=== PATIENT | female | born 1955 | race Caucasian/White ===

== ENCOUNTER → 2017-03-04 08:20 | Emergency (ER) | payer OTHER ==
[2017-03-04 08:32] VITALS: BP 117/86
[2017-03-04 11:01] LABS: Urine Appearance Clear; Urine Blood 1+ (Negative); Urine Color Yellow; Urine Ketones Negative (Negative); Urine Protein Negative (Negative); Urine Specific Gravity 1.012 (1.010-1.030); Urine Urobilinogen Negative (Negative)
[2017-03-04 11:17] LABS: ABS Basophils 0.1 10^3/ul (0-0.2); ABS Eosinophils 0.4 10^3/ul (0-0.6); ABS Lymphocytes 3.8 10^3/ul (1.0-4.8); ABS Monocytes 0.8 10^3/ul (0-0.8); ABS Neutrophils 4.1 10^3/ul (1.5-7.7); ABS Nucleated RBC 0 10^3/ul; Eosinophil % 4.3 % (0-6); Hematocrit 38 % (35-47); Lymphocyte % 41.9 % (25-47); Mean Corpuscular HGB Conc 34 g/dl (31-36); Mean Corpuscular Hemoglobin 33 pg (27-31); Mean Corpuscular Volume 95 fL (80-97); Mean Platelet Volume 8 um3 (7.4-10.4); Nucleated Red Blood Cells % 0; Platelet Count 264 10^3/ul (150-450); Red Blood Count 4.01 10^6/ul (4.0-5.4); Red Cell Distribution Width 12 % (10.5-15); White Blood Count 9.1 10^3/ul (3.5-10.8)
[2017-03-04 12:11] LABS: EGFR Non-African American 82.9 (>60)
--- NOTE | 2017-03-04 12:37 | ED ---
Avni Harvey Tecjoon, scribed for Prudencio Soni MD on 03/04/17 at 1045 . Complex/Multi-Sys Presentation - HPI Summary HPI Summary: This patient is a 61 year old female presenting to [facility] with a chief complaint of back spasms and lack of medication since months ago. Patient states that she has Parkinsons and has run out of Carbidopa and Mirapex a few months ago and has come to the ED for a medication refill Patient, at time of exam is restless and twitching. The pain is rated 8/10 in severity. Symptoms aggravated by nothing. Symptoms alleviated by nothing. The patient additionally repots thirstiness and general myalgia. The patient denies SOB, chest pain. - History Of Current Complaint Chief Complaint: EDBackInjuryPain Time Seen by Provider: 03/04/17 10:28 Hx Obtained From: Patient Onset/Duration: Gradual Onset, Lasting Weeks - 4+, Still Present Timing: Constant Severity Initially: Moderate - 8/10 Location: Pain At: - back Aggravating Factor(s): nothing Alleviating Factor(s): nothing Associated Signs And Symptoms: Positive: Other - back pain/spasms, thirstiness. Negative: SOB, Chest Pain - Allergies/Home Medications Allergies/Adverse Reactions: Allergies Allergy/AdvReac Type Severity Reaction Status Date / Time Ciprofloxacin [From Cipro] Allergy Severe Difficulty Verified 08/10/14 08:06 Breathing Sulfa Drugs AdvReac Mild See Comment Verified 08/10/14 08:06 PMH/Surg Hx/FS Hx/Imm Hx Previously Healthy: No Endocrine/Hematology History: Denies: Hx Diabetes, Hx Systemic Lupus Erythematosus, Hx Thyroid Disease Cardiovascular History: Reports: Other Cardiovascular Problems/Disorders - SVTS , BORN W BYPASS VALVE Denies: Hx Congestive Heart Failure, Hx Hypertension Respiratory History: Denies: Hx Asthma, Hx Chronic Obstructive Pulmonary Disease (COPD) GI History: Reports: Hx Diverticulosis, Hx Gastroesophageal Reflux Disease, Hx Ulcer - bleeding stomach ulcer, Other GI Disorders - GERD, DIVERTICULITIS History: Reports: Other Problems/Disorders - FREQ UTIS Denies: Hx Renal Disease Musculoskeletal History: Reports: Hx Arthritis, Other Musculoskeletal History - FX OF LT ANKLE, RT GREAT TOE, LT 3RD DIGIT Denies: Hx Rheumatoid Arthritis - Cancer History Cancer Type, 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 - Surgical History Surgery Procedure, Year, and Place: RT THUMB SX Hx Anesthesia Reactions: No Infectious Disease History: No Infectious Disease History: Reports: Hx Shingles - 2004 Denies: Hx Clostridium Difficile, Hx Hepatitis, Hx Human Immunodeficiency Virus (HIV), Hx of Known/Suspected MRSA, Hx Tuberculosis, Hx Known/Suspected VRE , Hx Known/Suspected VRSA, History Other Infectious Disease, Traveled Outside the [place] in Last 30 Days - Family History Known Family History: Positive: Hypertension - Social History Alcohol Use: Daily Alcohol Amount: Pt "clean for 39 days" 04/21/13 Hx Substance Use: Yes Substance Use Type: Reports: Cocaine, Marijuana. Denies: Heroin Substance Use Comment - Amount & Last Used: USED YESTERDAY, 03/03/17 Hx Tobacco Use: Yes Smoking Status (MU): Current Every Day Smoker Type: Cigarettes Amount Used/How Often: 1/2 PPD Length of Time of Smoking/Using Tobacco: 45+ YEARS Review of Systems Negative: Fever Negative: Chest Pain Negative: Shortness Of Breath Positive: Myalgia, Other - back pain/spasms All Other Systems Reviewed And Are Negative: Yes Physical Exam Triage Information Reviewed: Yes Vital Signs On Initial Exam: Initial Vitals Temp Pulse Resp BP Pulse Ox 97.9 F 94 20 117/86 96 03/04/17 08:27 03/04/17 08:27 03/04/17 08:27 03/04/17 08:27 03/04/17 08:27 Vital Signs Reviewed: Yes Appearance: Positive: Well-Appearing - but appears under the influence of drugs such as narcotics., No Pain Distress, Well-Nourished Skin: Positive: Warm, Skin Color Reflects Adequate Perfusion Head/Face: Positive: Normal Head/Face Inspection Eyes: Positive: EOMI ENT: Positive: Normal ENT inspection Neck: Positive: Nontender Respiratory/Lung Sounds: Positive: Clear to Auscultation, Breath Sounds Present Cardiovascular: Positive: RRR. Negative: Murmur Abdomen Description: Positive: Nontender Neurological: Positive: Sensory/Motor Intact, Alert, Oriented to Person Place, Time, CN Intact II-III Psychiatric: Positive: Normal, Other - the patient seems under the influence. She is not having parkinsonian movements and she is not having spasms. - Sebastián Coma Scale Best Eye Response: 4 - Spontaneous Best Motor Response: 6 - Obeys Commands Best Verbal Response: 5 - Oriented Coma Scale Total: 15 Diagnostics - Vital Signs Vital Signs Temp Pulse Resp BP Pulse Ox 03/04/17 10:00 30 03/04/17 09:00 82 14 96 03/04/17 08:43 87 18 95 03/04/17 08:27 97.9 F 94 20 117/86 96 - Laboratory Lab Results: Lab Results 03/04/17 Range/Units 10:40 Urine Color Yellow Urine Appearance Clear Urine pH 7.0 (5-9) Ur Specific [place] 1.012 (1.010-1.030) Urine Protein Negative (Negative) Urine Ketones Negative (Negative) Urine Blood 1+ H (Negative) Urine Nitrate Negative (Negative) Urine Bilirubin Negative (Negative) Urine Urobilinogen Negative (Negative) Ur Leukocyte Esterase Trace H (Negative) Urine WBC (Auto) Trace(0-5/hpf) (Absent) Urine RBC (Auto) Trace(0-2/hpf) (Absent) Urine Bacteria Absent (Absent) Urine Glucose Negative (Negative) Result Diagrams: 03/04/17 10:55 03/04/17 10:55 Lab Statement: Any lab studies that have been ordered have been reviewed, and results considered in the medical decision making process. - EKG 1117 Cardiac Rate: NL EKG Rhythm: Sinus Rhythm - 86 BPM EKG Interpretation: NSR (86 BPM), Normal VT, QRS, QT, no STEMI. Complex Multi-Symp Course/Dx Course Of Treatment: 61 yr old with substance abuse and non compliant with taking her meds, follow up appointment etc. She is in no distress. Will not write scripts. She will establish new PMD and follow up with them. The patient actually absconded prior to being discharged and left without any notice from the ER. AMA. - Diagnoses Provider Diagnoses: Substance abuse Discharge - Discharge Plan Condition: Good Disposition: AGAINST MEDICAL ADVICE Patient Education Materials: Polysubstance Abuse (ED) Referrals: [facility] [place] [facility] [Outside] Madison Guillen MD [Primary Care Provider] - 2 Days The documentation as recorded by the Avni villatoro Tecjoon accurately reflects the service I personally performed and the decisions made by , Prudencio Soni MD.
== END ==
LOC: ED 08:20
DX: F19.10 Other psychoactive substance abuse, uncomplicated (principal); M54.9 Dorsalgia, unspecified; F17.210 Nicotine dependence, cigarettes, uncomplicated; Z87.19 Personal history of other diseases of the digestive system; Z86.79 Personal history of other diseases of the circulatory system
CPT/HCPCS: 36415; 80053; 80307; 80320; 80329; 81003; 81015; 84443; 85025; 87086; 93005; 99283; G0480

== ENCOUNTER 2017-03-14 17:35 | Emergency (ER) | payer OTHER ==
--- NOTE | 2017-03-14 18:55 | RAD ---
Indication: Supraventricular tachycardia. Single frontal view of the chest performed at 1828 hours was reviewed. Comparison is made with previous exam dated March 17, 2013. No mediastinal shift is noted. Heart is of normal size and configuration. Lung hernandez appear clear. IMPRESSION: NO ACTIVE CARDIOPULMONARY DISEASE IS NOTED.
[2017-03-14 19:20] LABS: ABS Basophils 0 10^3/ul (0-0.2); ABS Eosinophils 0.3 10^3/ul (0-0.6); ABS Monocytes 0.8 10^3/ul (0-0.8); ABS Neutrophils 3.6 10^3/ul (1.5-7.7); ABS Nucleated RBC 0 10^3/ul; Eosinophil % 4.5 % (0-6); Hematocrit 41 % (35-47); Hemoglobin 14.1 g/dl (12.0-16.0); Mean Corpuscular HGB Conc 34 g/dl (31-36); Mean Corpuscular Hemoglobin 32 pg (27-31); Mean Corpuscular Volume 95 fL (80-97); Mean Platelet Volume 8 um3 (7.4-10.4); Nucleated Red Blood Cells % 0.1; Platelet Count 260 10^3/ul (150-450); Red Blood Count 4.36 10^6/ul (4.0-5.4); Red Cell Distribution Width 12 % (10.5-15); White Blood Count 7.8 10^3/ul (3.5-10.8)
[2017-03-14 19:28] LABS: EGFR Non-African American 62.5 (>60)
[2017-03-14 19:37] LABS: INR 0.85 (0.77-1.02)
[2017-03-14] MEDS ORDERED: Pramipexole TAB* 0.5 MG PO ONE ×2 (19:37→19:42)
[2017-03-14 19:40] LABS: Urine Appearance Cloudy; Urine Blood 2+ (Negative); Urine Color Straw; Urine Ketones Negative (Negative); Urine Protein Negative (Negative); Urine Specific Gravity 1.006 (1.010-1.030); Urine Urobilinogen Negative (Negative)
[2017-03-14 19:58] VITALS: BP 104/56
[2017-03-14] MEDS ORDERED: Carbidopa/Levodop 25/100 MG TAB(*) PO SCH (21:00)
--- NOTE | 2017-03-15 00:24 | ED ---
Cynthia Harvey Abhishek, scribed for Nesha oLtt MD on 03/14/17 at 1859 . Palpitations / Dysrhythmia - HPI Summary HPI Summary: Pt is a 61 yo F with hx paroxysmal SVT who called for the ambulance after approximately 30 minutes of rapid HR at home that did not respond to vagal maneuvers as usual. In the ambulance pt was given 500 cc IV fluids and continued vagal maneuvers and she converted to sinus rhythm. Pt denies any chest pain with the rapid HR. Pt states she has a bicuspid aortic valve. Pt also admits that she has a long hx of crack cocaine abuse and states that she has not used crack cocaine for 2 days because she is trying to self-detox. Pt states she is planning to go to [facility] on 03/16/17. Pt states that often her potassium is low when she has bouts of SVT. She states she has not needed to go to the hospital for SVT since 2007. Pt denies suicidal or homicidal ideation and states she does not want to seek rehab tonight and will go to [facility] in 2 days. Pt states she has run out of her mirapex and sinemet that she takes for restless legs and possible Parkinson's. States she has been without these medications for about 2 weeks, but has not had a PCP for approximately 2 months because she was "fired" for missing appointments. Pt also used to see Dr. Sandhu. Pt is a cigarette smoker. States she has not had an VA and has never had CHF. EKG done by EMS not available for me to review at the time of this encounter, however pt's care was discussed in person with female medic who was confident that rhythm was SVT and converted to SR. Pt is SR in the ED upon presentation. - History of Current Complaint Time Seen by Provider: 03/14/17 17:51 Hx Obtained From: Patient, EMS Onset/Duration: Sudden Onset - at 1740 on 03/14/17, Lasting Minutes, Resolved Timing: Constant Severity Initially: Severe Severity Currently: Mild Character: Fast Aggravating: Nothing Alleviating: Other - valsalva bearing down maneuvers with EMS Associated Signs & Symptoms: Negative Related History: Similar Episode/Dx as - SVT - Risk Factors Cardiac: Smoking - Allergy/Home Medications Allergies/Adverse Reactions: Allergies Allergy/AdvReac Type Severity Reaction Status Date / Time Ciprofloxacin [From Cipro] Allergy Severe Difficulty Verified 08/10/14 08:06 Breathing Sulfa Drugs AdvReac Mild See Comment Verified 08/10/14 08:06 PMH/Surg Hx/FS Hx/Imm Hx Endocrine/Hematology History: Denies: Hx Diabetes, Hx Systemic Lupus Erythematosus, Hx Thyroid Disease Cardiovascular History: Reports: Other Cardiovascular Problems/Disorders - SVT, born with bicuspid aortic valve Denies: Hx Congestive Heart Failure, Hx Hypertension Respiratory History: Denies: Hx Asthma, Hx Chronic Obstructive Pulmonary Disease (COPD) GI History: Reports: Hx Diverticulosis, Hx Gastroesophageal Reflux Disease, Hx Ulcer - bleeding stomach ulcer, Other GI Disorders History: Reports: Other Problems/Disorders - FREQ UTIS Denies: Hx Renal Disease Musculoskeletal History: Reports: Hx Arthritis, Other Musculoskeletal History - FX OF LT ANKLE, RT GREAT TOE, LT 3RD DIGIT Denies: Hx Rheumatoid Arthritis Neurological History: Reports: Other Neuro Impairments/Disorders - Parkinson's, restless legs Psychiatric History: Reports: Hx Substance Abuse - "Crack" - Cancer History Cancer Type, 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 - Surgical History Surgery Procedure, Year, and Place: RT THUMB SX Hx Anesthesia Reactions: No Infectious Disease History: No Infectious Disease History: Reports: Hx Shingles - 2004 Denies: Hx Clostridium Difficile, Hx Hepatitis, Hx Human Immunodeficiency Virus (HIV), Hx of Known/Suspected MRSA, Hx Tuberculosis, Hx Known/Suspected VRE , Hx Known/Suspected VRSA, History Other Infectious Disease, Traveled Outside the [place] in Last 30 Days - Family History Known Family History: Positive: Cardiac Disease - bicupsid aortic valve, mother , Hypertension - Social History Lives: Alone Alcohol Use: Daily Hx Substance Use: Yes Substance Use Type: Reports: Cocaine - "crack", Marijuana. Denies: Heroin Substance Use Comment - Amount & Last Used: 03/12/17, Two days ago Hx Tobacco Use: Yes Smoking Status (MU): Current Every Day Smoker Type: Cigarettes Amount Used/How Often: 1/2 PPD Length of Time of Smoking/Using Tobacco: 45+ YEARS Review of Systems Negative: Skin Diaphoresis Eyes: Negative ENT: Negative Positive: Palpitations Respiratory: Negative Gastrointestinal: Negative Genitourinary: Negative Musculoskeletal: Negative Skin: Negative Neurological: Negative Psychological: Normal All Other Systems Reviewed And Are Negative: Yes Physical Exam - Summary Physical Exam Summary: Appearance: chronically Ill-appearing, no pain distress, Well-nourished, sober Skin: Warm, color reflects adequate perfusion Head: Normal Head/Face inspection Eyes: Conjunctiva clear ENT: Normal inspection Neck: Supple, no nodes, no JVD. Respiratory: Expiratory wheezes bilaterally and a harsh cough Cardio: RRR, No murmur, pulses normal, brisk capillary refill Abdomen: soft, nontender Bowel sounds: present Musculoskeletal: Strength Intact/ ROM intact. No calf tenderness. No edema. Neuro: Alert, muscle tone normal, facial symmetry, speech normal, sensory/motor intact Psychological: Normal Triage Information Reviewed: Yes Vital Signs On Initial Exam: Initial Vitals Temp Pulse Resp BP Pulse Ox 98.2 F 94 18 108/91 94 03/14/17 17:40 03/14/17 17:40 03/14/17 17:40 03/14/17 17:40 03/14/17 17:40 Vital Signs Reviewed: Yes Diagnostics - Vital Signs Vital Signs Temp Pulse Resp BP Pulse Ox 03/14/17 17:40 98.2 F 94 18 108/91 94 - Laboratory Lab Results: Lab Results 03/14/17 03/14/17 03/14/17 Range/Units 19:01 19:01 19:01 WBC (3.5-10.8) 10^3/ul RBC (4.0-5.4) 10^6/ul Hgb (12.0-16.0) g/dl Hct (35-47) % MCV (80-97) fL MCH (27-31) pg MCHC (31-36) g/dl RDW (10.5-15) % Plt Count (150-450) 10^3/ul MPV (7.4-10.4) um3 Neut % (Auto) (38-83) % Lymph % (Auto) (25-47) % [place] % (Auto) (1-9) % Eos % (Auto) (0-6) % Baso % (Auto) (0-2) % Absolute Neuts (auto) (1.5-7.7) 10^3/ul Absolute Lymphs (auto) (1.0-4.8) 10^3/ul Absolute Monos (auto) (0-0.8) 10^3/ul Absolute Eos (auto) (0-0.6) 10^3/ul Absolute Basos (auto) (0-0.2) 10^3/ul Absolute Nucleated RBC 10^3/ul Nucleated RBC % INR (Anticoag Therapy) (0.77-1.02) APTT (26.0-36.3) seconds Sodium 139 (133-145) mmol/L Potassium 4.0 (3.5-5.0) mmol/L Chloride 107 (101-111) mmol/L Carbon Dioxide 28 (22-32) mmol/L Anion Gap 4 (2-11) mmol/L BUN 17 (6-24) mg/dL Creatinine 0.92 (0.51-0.95) mg/dL Est GFR ( Amer) 80.4 (>60) Est GFR (Non-Af Amer) 62.5 (>60) BUN/Creatinine Ratio 18.5 (8-20) Glucose 88 (70-100) mg/dL Lactic Acid (0.5-2.0) mmol/L Calcium 9.2 (8.6-10.3) mg/dL Magnesium 2.1 (1.9-2.7) mg/dL Total Bilirubin 0.30 (0.2-1.0) mg/dL AST 20 (13-39) U/L ALT 20 (7-52) U/L Alkaline Phosphatase 70 (34-104) U/L Troponin I 0.01 (<0.04) ng/mL B-Natriuretic Peptide 28 ( - 100) pg/mL Total Protein 6.2 L (6.4-8.9) g/dL Albumin 3.7 (3.2-5.2) g/dL Globulin 2.5 (2-4) g/dL Albumin/Globulin Ratio 1.5 (1-3) TSH 1.06 (0.34-5.60) mcIU/mL Thyroxine (T4) 5.81 L (6.09-12.23) mcg/mL Urine Color Straw Urine Appearance Cloudy Urine pH 6.0 (5-9) Ur Specific [place] 1.006 L (1.010-1.030) Urine Protein Negative (Negative) Urine Ketones Negative (Negative) Urine Blood 2+ H (Negative) Urine Nitrate Negative (Negative) Urine Bilirubin Negative (Negative) Urine Urobilinogen Negative (Negative) Ur Leukocyte Esterase Negative (Negative) Urine WBC (Auto) Trace(0-5/hpf) (Absent) Urine RBC (Auto) Trace(0-2/hpf) (Absent) Ur Squamous Epith Cells Present H (Absent) Urine Bacteria Absent (Absent) Urine Glucose Negative (Negative) 03/14/17 03/14/17 03/14/17 Range/Units 19:01 19:01 19:01 WBC 7.8 (3.5-10.8) 10^3/ul RBC 4.36 (4.0-5.4) 10^6/ul Hgb 14.1 (12.0-16.0) g/dl Hct 41 (35-47) % MCV 95 (80-97) fL MCH 32 H (27-31) pg MCHC 34 (31-36) g/dl RDW 12 (10.5-15) % Plt Count 260 (150-450) 10^3/ul MPV 8 (7.4-10.4) um3 Neut % (Auto) 46.2 (38-83) % Lymph % (Auto) 39.0 (25-47) % [place] % (Auto) 9.9 H (1-9) % Eos % (Auto) 4.5 (0-6) % Baso % (Auto) 0.4 (0-2) % Absolute Neuts (auto) 3.6 (1.5-7.7) 10^3/ul Absolute Lymphs (auto) 3.0 (1.0-4.8) 10^3/ul Absolute Monos (auto) 0.8 (0-0.8) 10^3/ul Absolute Eos (auto) 0.3 (0-0.6) 10^3/ul Absolute Basos (auto) 0 (0-0.2) 10^3/ul Absolute Nucleated RBC 0 10^3/ul Nucleated RBC % 0.1 INR (Anticoag Therapy) 0.85 (0.77-1.02) APTT 42.0 H (26.0-36.3) seconds Sodium (133-145) mmol/L Potassium (3.5-5.0) mmol/L Chloride (101-111) mmol/L Carbon Dioxide (22-32) mmol/L Anion Gap (2-11) mmol/L BUN (6-24) mg/dL Creatinine (0.51-0.95) mg/dL Est GFR ( Amer) (>60) Est GFR (Non-Af Amer) (>60) BUN/Creatinine Ratio (8-20) Glucose (70-100) mg/dL Lactic Acid 1.1 (0.5-2.0) mmol/L Calcium (8.6-10.3) mg/dL Magnesium (1.9-2.7) mg/dL Total Bilirubin (0.2-1.0) mg/dL AST (13-39) U/L ALT (7-52) U/L Alkaline Phosphatase (34-104) U/L Troponin I (<0.04) ng/mL B-Natriuretic Peptide ( - 100) pg/mL Total Protein (6.4-8.9) g/dL Albumin (3.2-5.2) g/dL Globulin (2-4) g/dL Albumin/Globulin Ratio (1-3) TSH (0.34-5.60) mcIU/mL Thyroxine (T4) (6.09-12.23) mcg/mL Urine Color Urine Appearance Urine pH (5-9) Ur Specific [place] (1.010-1.030) Urine Protein (Negative) Urine Ketones (Negative) Urine Blood (Negative) Urine Nitrate (Negative) Urine Bilirubin (Negative) Urine Urobilinogen (Negative) Ur Leukocyte Esterase (Negative) Urine WBC (Auto) (Absent) Urine RBC (Auto) (Absent) Ur Squamous Epith Cells (Absent) Urine Bacteria (Absent) Urine Glucose (Negative) Result Diagrams: 03/14/17 19:01 03/14/17 19:01 Lab Statement: Any lab studies that have been ordered have been reviewed, and results considered in the medical decision making process. - Radiology Chest X-ray Radiology Interpretation Completed By: Radiologist - CXR reveals, per radiologist, NO ACTIVE CARDIOPULMONARY DISEASE IS NOTED. ED physician has reviewed this radiology report and agrees. - EKG 1746 Cardiac Rate: NL EKG Rhythm: Sinus Rhythm - [address] Segment: Non-Specific Ectopy: None EKG Interpretation: EKG at 1746 reveals nml AVIVCT, nml QTc, normal axis EKG Comparison: No Significant Change - Prior EKG taken at 03/04/17 Re-Evaluation - Re-Evaluation First Eval Re-Evaluation Time: 19:30 - Denies chest pain. Labs reviewed. Agrees to discharge Change: Unchanged Course/Dx - Course Course Of Treatment: The pt presented [facility] with a chief complaint of palpitations. Pt stated her "heart was racing fast" and also stated she has a pertinent PMHx of SVT. Pt converted to sinus rhythm with stable blood pressure without medications, only IV fluids and valsalva. Pt also has a hx of substance abuse ("crack") which she last used 2 days ago, as well as tobacco use. Potassium is normal as are other labs. Pt will be given 10 day prescriptions for mirapex and sinemet and dispensed doses for home use tonight. She is agreeable to discharge, and remains in sinus rhythm and without chest pain at the time of discharge. - Diagnoses Provider Diagnoses: SVT (supraventricular tachycardia) Discharge - Discharge Plan Condition: Stable Disposition: HOME Prescriptions: Carbidopa/Levodop 25/100 MG(*) [Sinemet 25/100 TAB(*)] 1 tab PO TID #30 tab Pramipexole TAB* [Mirapex TAB*] 1.5 mg PO BEDTIME #10 tab Patient Education Materials: Supraventricular Tachycardia (ED) Referrals: [facility] [facility] [Outside] Madison Guillen MD [Medical Doctor] - Additional Instructions: Follow up with [facility] as you are planning. Return to the ER if you have new or worsening symptoms. The documentation as recorded by the Cynthia villatoro Abhishek accurately reflects the service I personally performed and the decisions made by , Nesha Lott MD.
== END 2017-03-14 19:57 | disposition home or self-care (01) ==
LOC: ED 17:35
DX: I47.1 Supraventricular tachycardia (principal); F17.210 Nicotine dependence, cigarettes, uncomplicated; Z87.19 Personal history of other diseases of the digestive system; Z86.79 Personal history of other diseases of the circulatory system
CPT/HCPCS: 36415; 71045; 80053; 81003; 81015; 83605; 83735; 83880; 84436; 84443; 84484; 85025; 85610; 85730; 93005; 99283; A9270-GY

== ENCOUNTER 2017-05-14 04:33 | Observation (INO) | payer OTHER ==
[2017-05-14] MEDS ORDERED: NS 0.9% 1000 ML* 1,000 ML IV ONE (04:34)
[2017-05-14] MEDS ORDERED: Diazepam SYRINGE* 5 MG/ML 2 ML SYRINGE (10 MG total) IV ONE (04:35)
[2017-05-14] MEDS ORDERED: LORazepam INJ* 2 MG/ML 1 ML VIAL ONE (04:41)
[2017-05-14] MEDS ORDERED: LORazepam INJ* 2 MG/ML 1 ML VIAL IM ONE ×2 (04:42)
[2017-05-14 05:50] LABS: Urine Appearance Clear; Urine Blood 1+ (Negative); Urine Color Straw; Urine Ketones Negative (Negative); Urine Protein Negative (Negative); Urine Specific Gravity 1.006 (1.010-1.030); Urine Urobilinogen Negative (Negative)
[2017-05-14] MEDS ORDERED: Diazepam INJ (NF) 5 MG/ML 10 ML VIAL (50 MG TOTAL) IV ONE ×2 (06:00)
[2017-05-14 06:02] LABS: ABS Basophils 0.1 10^3/ul (0-0.2); ABS Eosinophils 0.3 10^3/ul (0-0.6); ABS Monocytes 0.9 10^3/ul (0-0.8); ABS Neutrophils 5.5 10^3/ul (1.5-7.7); ABS Nucleated RBC 0 10^3/ul; Eosinophil % 2.8 % (0-6); Hematocrit 36 % (35-47); Hemoglobin 12.2 g/dl (12.0-16.0); Lymphocyte % 42.9 % (25-47); Mean Corpuscular HGB Conc 34 g/dl (31-36); Mean Corpuscular Hemoglobin 32 pg (27-31); Mean Corpuscular Volume 95 fL (80-97); Mean Platelet Volume 8 um3 (7.4-10.4); Nucleated Red Blood Cells % 0.1; Platelet Count 272 10^3/ul (150-450); Red Blood Count 3.77 10^6/ul (4.0-5.4); Red Cell Distribution Width 13 % (10.5-15); White Blood Count 11.7 10^3/ul (3.5-10.8)
[2017-05-14] MEDS ORDERED: Morphine INJ* 4 MG/ML 1 ML SYRINGE (NEW SYRINGE VERSION) IV ONE (06:07)
[2017-05-14] MEDS ORDERED: Morphine INJ* 4 MG/ML 1 ML SYRINGE (NEW SYRINGE VERSION) ONE (06:08)
[2017-05-14 06:19] LABS: EGFR Non-African American 62.3 (>60)
--- NOTE | 2017-05-14 07:03 | ED ---
Cynthia Harvey Abhishek, scribed for Ceci Elam MD on 05/14/17 at 0615 . Lower Extremity - HPI Summary HPI Summary: The pt is a 62 y/o female presenting to the [facility] via ambulance with a chief complaint of back spasms. The pt states she has a PMHx of restless leg syndrome and has not been taking medication for the syndrome. Pt brought by EMS due to pain and involuntary movement of the left leg. The pain, according to the pt, radiates into the left leg described as an itching." The patient rates the pain 10/10 in severity. Symptoms aggravated by nothing. Symptoms alleviated by nothing. - History of Current Complaint Chief Complaint: EDGeneral Stated Complaint: MUSCLE SPASMS Time Seen by Provider: 05/14/17 04:34 Pain Intensity: 10 - Allergies/Home Medications Allergies/Adverse Reactions: Allergies Allergy/AdvReac Type Severity Reaction Status Date / Time MS Ciprofloxacin [From Cipro] Allergy Severe Difficulty Verified 08/10/14 08:06 Breathing MS Sulfa Drugs [Sulfa Drugs] AdvReac Mild See Comment Verified 08/10/14 08:06 PMH/Surg Hx/FS Hx/Imm Hx Endocrine/Hematology History: Denies: Hx Diabetes, Hx Systemic Lupus Erythematosus, Hx Thyroid Disease Cardiovascular History: Reports: Other Cardiovascular Problems/Disorders - SVT, born with bicuspid aortic valve Denies: Hx Congestive Heart Failure, Hx Hypertension Respiratory History: Denies: Hx Asthma, Hx Chronic Obstructive Pulmonary Disease (COPD) GI History: Reports: Hx Diverticulosis, Hx Gastroesophageal Reflux Disease, Hx Ulcer - bleeding stomach ulcer, Other GI Disorders History: Reports: Other Problems/Disorders - FREQ UTIS Denies: Hx Renal Disease Musculoskeletal History: Reports: Hx Arthritis, Other Musculoskeletal History - FX OF LT ANKLE, RT GREAT TOE, LT 3RD DIGIT Denies: Hx Rheumatoid Arthritis Neurological History: Reports: Other Neuro Impairments/Disorders - Parkinson's, restless legs Psychiatric History: Reports: Hx Substance Abuse - "Crack" - Cancer History Cancer Type, 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 - Surgical History Surgery Procedure, Year, and Place: RT THUMB SX Hx Anesthesia Reactions: No Infectious Disease History: No Infectious Disease History: Reports: Hx Shingles - 2004 Denies: Hx Clostridium Difficile, Hx Hepatitis, Hx Human Immunodeficiency Virus (HIV), Hx of Known/Suspected MRSA, Hx Tuberculosis, Hx Known/Suspected VRE , Hx Known/Suspected VRSA, History Other Infectious Disease, Traveled Outside the [place] in Last 30 Days - Family History Known Family History: Positive: Cardiac Disease - bicupsid aortic valve, mother , Hypertension - Social History Alcohol Use: Daily Alcohol Amount: Pt "clean for 39 days" 04/21/13 Hx Substance Use: Yes Substance Use Type: Reports: Cocaine, Marijuana Substance Use Comment - Amount & Last Used: Marijuana Hx Tobacco Use: Yes Smoking Status (MU): Current Every Day Smoker Type: Cigarettes Amount Used/How Often: 1/2 PPD Length of Time of Smoking/Using Tobacco: 45+ YEARS Review of Systems Constitutional: Negative Eyes: Negative ENT: Negative Cardiovascular: Negative Respiratory: Negative Gastrointestinal: Negative Genitourinary: Negative Musculoskeletal: Other - Lower back spasms Positive: Other - Left leg pain ("itching" feeling) Skin: Negative Neurological: Other - Involuntary movement of the left leg Psychological: Normal All Other Systems Reviewed And Are Negative: Yes Physical Exam - Summary Physical Exam Summary: VITAL SIGNS: Reviewed. GENERAL: ~Patient is a well-developed and nourished (FEMALE) who is lying comfortable in the stretcher. Patient is not in any acute respiratory distress. HEAD AND FACE: No signs of trauma. No ecchymosis, hematomas or skull depressions. No sinus tenderness. EYES: PERRLA, EOMI x 2, No injected conjunctiva, no nystagmus. EARS: Hearing grossly intact. Ear canals and tympanic membranes are within normal limits. MOUTH: Oropharynx within normal limits. NECK: Supple, trachea is midline, no adenopathy, no JVD, no carotid bruit, no c- spine tenderness, neck with full ROM. CHEST: Symmetric, n SKIN: Dry and warm o tenderness at palpation LUNGS: Clear to auscultation bilaterally. No wheezing or crackles. CVS: Regular rate and rhythm, S1 and S2 present, no murmurs or gallops appreciated. ABDOMEN: Soft, non-tender. No signs of distention. No rebound no guarding, and no masses palpated. Bowel sounds are normal. EXTREMITIES: FROM in all major joints, no edema, no cyanosis or clubbing. NEURO: Involuntary movement over the bed Triage Information Reviewed: Yes Vital Signs On Initial Exam: Initial Vitals Temp Pulse Resp BP Pulse Ox 98.3 F 107 24 121/74 94 03/15/18 04:37 05/14/17 04:37 05/14/17 04:37 05/14/17 04:37 05/14/17 04:37 Vital Signs Reviewed: Yes Diagnostics - Vital Signs Vital Signs Temp Pulse Resp BP Pulse Ox 05/14/17 05:45 25 05/14/17 05:00 115 93 05/14/17 04:47 120/83 05/14/17 04:44 101 95 05/14/17 04:43 20 05/14/17 04:41 105 94 05/14/17 04:40 122/70 05/14/17 04:37 98.3 F 107 24 121/74 94 - Laboratory Lab Results: Lab Results 05/14/17 05/14/17 05/14/17 Range/Units 05:29 05:29 05:45 WBC 11.7 H (3.5-10.8) 10^3/ul RBC 3.77 L (4.0-5.4) 10^6/ul Hgb 12.2 (12.0-16.0) g/dl Hct 36 (35-47) % MCV 95 (80-97) fL MCH 32 H (27-31) pg MCHC 34 (31-36) g/dl RDW 13 (10.5-15) % Plt Count 272 (150-450) 10^3/ul MPV 8 (7.4-10.4) um3 Neut % (Auto) 46.5 (38-83) % Lymph % (Auto) 42.9 (25-47) % [place] % (Auto) 7.4 H (0-7) % Eos % (Auto) 2.8 (0-6) % Baso % (Auto) 0.4 (0-2) % Absolute Neuts (auto) 5.5 (1.5-7.7) 10^3/ul Absolute Lymphs (auto) 5.0 H (1.0-4.8) 10^3/ul Absolute Monos (auto) 0.9 H (0-0.8) 10^3/ul Absolute Eos (auto) 0.3 (0-0.6) 10^3/ul Absolute Basos (auto) 0.1 (0-0.2) 10^3/ul Absolute Nucleated RBC 0 10^3/ul Nucleated RBC % 0.1 Urine Color Straw Urine Appearance Clear Urine pH 5.0 (5-9) Ur Specific [place] 1.006 L (1.010-1.030) Urine Protein Negative (Negative) Urine Ketones Negative (Negative) Urine Blood 1+ A (Negative) Urine Nitrate Negative (Negative) Urine Bilirubin Negative (Negative) Urine Urobilinogen Negative (Negative) Ur Leukocyte Esterase Negative (Negative) Urine WBC (Auto) Trace(0-5/hpf) (Absent) Urine RBC (Auto) Trace(0-2/hpf) (Absent) Ur Squamous Epith Cells Present A (Absent) Urine Bacteria Absent (Absent) Urine Glucose Negative (Negative) Urine Opiates Screen None detected (None Detect) Ur Barbiturates Screen None detected (None Detect) Ur Phencyclidine Scrn None detected (None Detect) Ur Amphetamines Screen None detected (None Detect) U Benzodiazepines Scrn None detected (None Detect) Urine Cocaine Screen Presumptive positive A (None Detect) U Cannabinoids Screen Presumptive positive A (None Detect) Result Diagrams: 05/14/17 05:45 05/14/17 05:45 Lab Statement: Any lab studies that have been ordered have been reviewed, and results considered in the medical decision making process. Lower Extremity Course/Dx - Course Course Of Treatment: The pt is a 62 y/o female with a chief complaint of lower back spasms. Pt states pain radiates into the left lower leg. PErtinent PMHx includes restless leg syndrome for which the pt has not taken medication for recently. EMS reports involuntary leg movement and lower extremity pain. The pt will be signed out to Dr. Diaz, pending reevaluation. The dx will be restless leg syndrome and substance abuse (cocaine). - Diagnoses Provider Diagnoses: Restless leg syndrome, Cocaine substance abuse Discharge - Discharge Plan Condition: Stable Disposition: OTHER Discharge Disposition Comment: Signed out to Dr. Diaz Referrals: No Primary Care Phys,NOPCP [Primary Care Provider] - The documentation as recorded by the Cynthia villatoro Abhishek accurately reflects the service I personally performed and the decisions made by me, Ceci Elam MD.
--- NOTE | 2017-05-14 09:41 | RAD ---
Indication: Cough. Muscle spasms. SVT. Bicuspid aortic valve. History of tobacco use. Comparison: March 14, 2017 Technique: Upright AP 0858 hours Report: Prominent interstitial markings with clearly thickened peripheral interlobular septa. Probable trace RIGHT pleural effusion. Upper normal heart size. Ill-defined central pulmonary vasculature. IMPRESSION: Pulmonary vascular congestion and interstitial edema.
--- NOTE | 2017-05-14 09:52 | RAD ---
INDICATION: Altered mental status COMPARISON: None TECHNIQUE: Noncontrast axial source images were acquired from the skull base to the vertex. FINDINGS: Ventricles/sulci: The ventricles and cisterns are normal in size and configuration for age. Brain parenchyma: There is no focal parenchymal finding, evidence of intracranial mass, or intracranial mass effect. Intracranial hemorrhage:None. Extra-axial spaces: There are no abnormal extra axial fluid collections or evidence of extra-axial mass. Calvarium: There is no calvarial fracture or other calvarial abnormality. Scalp: There is no evidence of scalp or extracalvarial soft tissue abnormality. Paranasal sinuses/mastoid: The paranasal sinuses and mastoid air cells are clear. Other: None. IMPRESSION: No acute intracranial findings
[2017-05-14] MEDS ORDERED: Ondansetron INJ* 2 MG/ML VIAL IV PRN (12:33)
[2017-05-14] MEDS ORDERED: Acetaminophen TAB* 325 MG PO PRN (12:33)
[2017-05-14] MEDS: Heparin VIAL(*) 5000 UNITS/ML VIAL (FIVE THOUSAND) SUBCUT SCH ×2 (15:19→22:13)
[2017-05-14] MEDS: Carbidopa/Levodop 25/100 MG TAB(*) PO SCH ×2 (15:19→22:12)
--- NOTE | 2017-05-14 18:17 | HP ---
ADMISSION HISTORY AND PHYSICAL: DATE OF ADMISSION: 05/14/17 PRIMARY CARE PROVIDER: None. HEALTHCARE PROXY: Unable to obtain from the patient. CODE STATUS: Unable to obtain from the patient, presumed full code. SOURCE OF INFORMATION: History obtained from interview with Dr. Diaz, review of medical records. RELIABILITY: Poor. CHIEF COMPLAINT: Restless leg syndrome, excessive medications in the emergency room. HISTORY OF PRESENT ILLNESS: This is a 62-year-old female, past medical history per chart review, Parkinson disease, GERD, SVT, and restless leg syndrome, who according to [facility] records was brought in by ambulance for severe muscle spasms. ED provider report indicates she has a history of restless leg syndrome, has now been taking her medications, has involuntary movement of her left leg with pain that radiates to the left leg, described as "itching." She rated the pain 10/10, not aggravated or relieved by anything. She was noted to be positive for cannabis as well as cocaine. Dr. Elam signed out to Dr. Diaz pending reevaluation. Overnight, she received a total of 8 mg of morphine, 5 mg of Ativan and 15 mg of diazepam. The hospitalists were consulted for altered mental status. Additional review of nursing notes indicate the patient had been reporting body spasms, worse in her left upper hip. Later in the evening around 5:30, the patient reported she want to stand, although was reminded she was unable to walk without assistance and she was compliant with getting back in bed, although felt itchy and crawling sensation all over her body. Apparently, the patient was flailing in bed and she was given 10 mg of diazepam as well as 4 mg of morphine and then was noted to be sleeping at 6:24 a.m. with desaturation of her oxygen. She was put on oxygen. When seen by this author, she was lethargic, although able to wake after applying painful stimuli to her hand. PAST MEDICAL HISTORY: Obtained from past records include Parkinson disease, GERD, SVT, and restless leg syndrome. MEDICATIONS: Home medications reviewed from our records, unable to confirm with the patient include: 1. Loratadine 10 mg daily. 2. Sinemet 25/100 mg tab 3 times daily. 3. Mirapex 1.5 mg at bedtime. ALLERGIES: Per chart review includes prophylaxis on SULFA DRUGS. FAMILY HISTORY: Mother with Hodgkin lymphoma. Father with history of COPD. SOCIAL HISTORY: Obtained from past medical records include positive tobacco for greater than 30 years. Positive alcohol. Positive cocaine in urine as well as reported crack cocaine in previous records. Positive cannabis. Previously had no healthcare proxy. REVIEW OF SYSTEMS: Unable to obtain, other than from chart review. PHYSICAL EXAMINATION GENERAL: Lying flat in bed, no apparent distress, snoring. VITAL SIGNS: When seen by this author, 131/73, heart rate 86, respiratory rate is 16. When seen by this author, T-max 98.3, she desatted to 90% on room air, increased to 94% on 2 L. HEENT: Oropharynx is clear. Eyes: Pupils are approximately 2 mm and reactive to light. LUNGS: Clear to auscultation. HEART: She has regular rate and rhythm. ABDOMEN: Soft, nontender, nondistended, with positive bowel sounds. EXTREMITIES: Warm and well perfused, without clubbing, cyanosis or edema. NEUROLOGIC: She is A and O x1. She awakes to painful stimuli in her hand and able to say her name, but quickly falls back asleep. Does not follow commands. Moves all extremities. Withdraws and localizes to pain. LABORATORY DATA: Labs reviewed, notable for urine positive for cocaine as well as cannabis. White blood cell count 11.7, hemoglobin 12.2, platelets 272, 000. TSH 2.69. Urine positive for blood as well as trace squamous epithelial cells. DATA REVIEWED: Brain CT, impression: No acute intracranial findings. Chest x-ray: Pulmonary vascular congestion and interstitial edema. ASSESSMENT AND PLAN: This is a 62-year-old female, past medical history as outlined above, presents to the hospital reportedly with spasms, possibly worse in her lower extremities and back per ED report, received a substantial amount of narcotics as well as benzodiazepines, now lethargic and with hypoxic respiratory failure. 1. Lethargy, suspect in the setting of medication administration. Hold all benzodiazepines as well as morphine and monitor. We will hold on giving the patient Narcan at this time, unless she requires higher dose of oxygen or evidence of hypoventilation. Placed her on continuous pulse oximetry. 2. Restless leg syndrome. Continue pramipexole. 3. Parkinson disorder. Continue Sinemet. 4. Polysubstance abuse, group counselor cessation when able. 5. DVT prophylaxis. Low risk on our screen; however, concern we may be missing other contributing factors. Unable to obtain at this time. We will continue subcu heparin the patient is unable to ambulate. 6. Admit to CDU unit, when able discharge. [id number]/[facility] #: [id number] IVAN
[2017-05-14] MEDS ORDERED: Pramipexole TAB* 0.5 MG PO SCH (21:00)
[2017-05-15] MEDS: Heparin VIAL(*) 5000 UNITS/ML VIAL (FIVE THOUSAND) SUBCUT SCH (05:30)
[2017-05-15] MEDS ORDERED: Benzocaine/Menthol LOZ* 1 LOZENGE MT PRN (06:18)
[2017-05-15] MEDS: Carbidopa/Levodop 25/100 MG TAB(*) PO SCH (08:36)
[2017-05-15] MEDS ORDERED: Cetirizine* 10 MG TAB PO SCH (09:00)
[2017-05-15 11:16] VITALS: BP 115/69
--- NOTE | 2017-05-15 17:51 | ED ---
Edgar Harvey Angela, scribed for Prudencio Diaz MD on 05/14/17 at 0731 . Progress - Progress Note Progress Note: This pt was signed out by Dr. Elam, pending disposition, awaiting re- evaluation. On re-evaluation, pt is sleeping comfortably and is stable. Brain CT, as read by radiologist IMPRESSION: No acute intracranial findings. Chest XR, as read by radiologist IMPRESSION: Pulmonary vascular congestion and interstitial edema. Dr. Diaz has reviewed these reports. This pt was signed out by Dr. Elam who recommends to follow up on the test results and do reassessments. Apparently the pt came in with altered mental status and agitated. Test results without any significant abnormalities except for WBC of 11.7. Urine toxicology is positive for cocaine and marijuana. Chest CT: No acute intracranial findings. Chest XR: Pulmonary vascular congestion and interstitial edema. In the ED course the pt was given IV fluids and we continued monitoring the pt but she is not getting better. Therefore I discussed the case with Dr. Holt, hospitalist, who accepted the pt for admission. Pt is hemodynamically stable, alert and oriented x3. Pt will be admitted to [facility], in stable condition, with a diagnosis of altered mental status. Condition: Stable Disposition: Admit to [facility] Re-Evaluation - Re-Evaluation First Eval Re-Evaluation Time: 07:33 Comment: Pt is resting comfortably and is stable. Course/Dx - Diagnoses Provider Diagnoses: Altered mental status - Provider Notifications Discussed Care Of Patient With: Abhinav Holt Time Discussed With Above Provider: 10:06 Instructed by Provider To: Other - I discussed pt care with Dr. Holt, hospitalist, who has agreed to admit the pt. The documentation as recorded by the Edgar villatoro Angela accurately reflects the service I personally performed and the decisions made by me, Prudencio Diaz MD.
--- NOTE | 2017-05-16 12:01 | DS ---
DISCHARGE SUMMARY: DATE OF ADMISSION: 05/14/17 DATE OF DISCHARGE: 05/15/17 HISTORY OF PRESENT ILLNESS: This 62-year-old woman presented to the emergency room because of restless leg syndrome. Her urine toxicology screen was positive for cannabis and cocaine. During the night she spent in the emergency room, she received 8 mg of morphine, 5 mg of lorazepam and 15 mg of diazepam. The hospitalist service was then consulted because of her altered mental status. The patient apparently sometimes was hypoxic, she was put on oxygen. She was monitored overnight on the with an oximeter. By the time I saw her at noon the following day, she was fully alert. O2 saturation was 90% on room air. The patient told me that she lost a lot of doctors because she did not show up to appointments. She said she had not taken any prescription medications for a few months. She really missed her pramipexole, which did seem to help her restless leg some. I do not think she suffered from not taking the other medications as far as I can tell. I phoned in a prescription for 30 pramipexole 0.5 mg, she takes 3 at bedtime, so this would be a 10-day supply. She was encouraged to stop smoking and avoid second-hand smoke. FINAL DIAGNOSES: 1. Restless leg syndrome. 2. Tobacco use disorder. DISCHARGE MEDICATIONS: 1. Pramipexole 0.5 mg 3 tablets h.s. [id number]/[facility] #: [id number] MTDD
== END 2017-05-15 14:00 | disposition home or self-care (01) ==
LOC: ED 04:33 → MED 12:33
PROVIDERS: ADMIT Internal Medicine; ATTEND Internal Medicine
DX: G25.81 Restless legs syndrome (principal); R53.83 Other fatigue; F17.210 Nicotine dependence, cigarettes, uncomplicated; G20 Parkinson's disease; K21.9 Gastro-esophageal reflux disease without esophagitis; I47.1 Supraventricular tachycardia; Z79.899 Other long term (current) drug therapy; F19.10 Other psychoactive substance abuse, uncomplicated; Z88.1 Allergy status to other antibiotic agents; Z88.2 Allergy status to sulfonamides
CPT/HCPCS: 36415; 70450; 71045; 80053; 80307; 80320; 81003; 81015; 82550; 84443; 85025; 87086; 96372; 96374; 96375; 99283; A9270-GY; G0378; G0480; J1644; J2060; J2270; J2405; J3360

== ENCOUNTER 2018-02-12 04:49 | Emergency (ER) | payer OTHER ==
[2018-02-12 04:57] VITALS: BP 131/70
[2018-02-12] MEDS ORDERED: Ibuprofen TAB* 800 MG PO ONE (05:03)
[2018-02-12] MEDS ORDERED: Clindamycin CAP* 150 MG PO ONE (05:04)
--- NOTE | 2018-02-12 05:08 | ED ---
Skin Complaint - HPI Summary HPI Summary: This pt is a 62 y/o female [place] [facility] [place] area over her left knee x2 days. Pt reports a couple of days ago she developed a red area over her left knee that is painful. Denies pruritus of this area. Pt additionally states she has had "bites" on her right upper chest for a couple of months now. Denies any fever, chills, nausea, vomiting, chest pain, SOB. PMHx includes drug and alcohol abuse, GERD, peptic ulcer - History of Current Complaint Stated Complaint: GENERAL Hx Obtained From: Patient Onset/Duration: Started Days Ago - 2, Still Present Skin Exposure Onset/Duration: Days Ago - 2 Timing: Lasting Days - 2 Current Severity: Mild Pain Intensity: 2 Pain Scale Used: 0-10 Numeric Skin Location: Leg - left knee Character: Pain, Redness, Painful Aggravating Symptom(s): Nothing Alleviating Symptom(s): Nothing Associated Signs & Symptoms: Negative - Additional Pertinent History Primary Care Physician: S[facility] - Allergy/Home Medications Allergies/Adverse Reactions: Allergies Allergy/AdvReac Type Severity Reaction Status Date / Time ciprofloxacin Allergy Severe Difficulty Verified 05/14/17 12:37 Breathing Sulfa (Sulfonamide Allergy Mild See Comment Verified 05/14/17 12:37 Antibiotics) PMH/Surg Hx/FS Hx/Imm Hx Endocrine/Hematology History: Denies: Hx Diabetes, Hx Systemic Lupus Erythematosus, Hx Thyroid Disease Cardiovascular History: Reports: Other Cardiovascular Problems/Disorders - SVT, born with bicuspid aortic valve Denies: Hx Congestive Heart Failure, Hx Hypertension Respiratory History: Denies: Hx Asthma, Hx Chronic Obstructive Pulmonary Disease (COPD) GI History: Reports: Hx Diverticulosis, Hx Gastroesophageal Reflux Disease, Hx Ulcer - bleeding stomach ulcer, Other GI Disorders History: Reports: Other Problems/Disorders - FREQ UTIS Denies: Hx Renal Disease Musculoskeletal History: Reports: Hx Arthritis, Other Musculoskeletal History - FX OF LT ANKLE, RT GREAT TOE, LT 3RD DIGIT Denies: Hx Rheumatoid Arthritis Sensory History: Denies: Hx Contacts or Glasses, Hx Hearing Aid Opthamlomology History: Denies: Hx Contacts or Glasses Neurological History: Reports: Other Neuro Impairments/Disorders - Parkinson's, restless legs Psychiatric History: Reports: Hx Substance Abuse - "Crack" - Cancer History Cancer Type, 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 - Surgical History Surgery Procedure, Year, and Place: RT THUMB SX Hx Anesthesia Reactions: No Infectious Disease History: No Infectious Disease History: Reports: Hx Shingles - 2004 Denies: Hx Clostridium Difficile, Hx Hepatitis, Hx Human Immunodeficiency Virus (HIV), Hx of Known/Suspected MRSA, Hx Tuberculosis, Hx Known/Suspected VRE , Hx Known/Suspected VRSA, History Other Infectious Disease, Traveled Outside the [place] in Last 30 Days - Family History Known Family History: Positive: Cardiac Disease - bicupsid aortic valve, mother , Hypertension - Social History Alcohol Use: Daily Alcohol Amount: Pt "clean for 39 days" 04/21/13 Hx Substance Use: Yes Substance Use Type: Reports: Cocaine Substance Use Comment - Amount & Last Used: Marijuana Hx Tobacco Use: Yes Smoking Status (MU): Current Every Day Smoker Type: Cigarettes Amount Used/How Often: 1/2 PPD Length of Time of Smoking/Using Tobacco: 45+ YEARS Review of Systems Negative: Fever, Chills Negative: Chest Pain Negative: Shortness Of Breath Negative: Vomiting, Nausea Skin: Other - POSITIVE: red area over left knee All Other Systems Reviewed And Are Negative: Yes Physical Exam - Summary Physical Exam Summary: VITAL SIGNS: Reviewed. GENERAL: Patient is a well-developed and nourished female who is lying comfortable in the stretcher. Patient is not in any acute respiratory distress. HEAD AND FACE: No signs of trauma. No ecchymosis, hematomas or skull depressions. No sinus tenderness. EYES: PERRLA, EOMI x 2, No injected conjunctiva, no nystagmus. EARS: Hearing grossly intact. Ear canals and tympanic membranes are within normal limits. MOUTH: Oropharynx within normal limits. NECK: Supple, trachea is midline, no adenopathy, no JVD, no carotid bruit, no c- spine tenderness, neck with full ROM. CHEST: Symmetric, no tenderness at palpation LUNGS: Clear to auscultation bilaterally. No wheezing or crackles. CVS: Regular rate and rhythm, S1 and S2 present, no murmurs or gallops appreciated. ABDOMEN: Soft, non-tender. No signs of distention. No rebound no guarding, and no masses palpated. Bowel sounds are normal. EXTREMITIES: FROM in all major joints, no edema, no cyanosis or clubbing. NEURO: Alert and oriented x 3. No acute neurological deficits. Speech is normal and follows commands. SKIN: Dry and warm. LLE: 1 inch in diameter tender, red, and warm area over the proximal part of the left leg. Painful but not pruritic. Triage Information Reviewed: Yes Vital Signs On Initial Exam: Initial Vitals Temp Pulse Resp BP Pulse Ox 97.6 F 89 18 131/70 96 02/12/18 04:51 02/12/18 04:51 02/12/18 04:51 02/12/18 04:51 02/12/18 04:51 Vital Signs Reviewed: Yes Diagnostics - Vital Signs Vital Signs Temp Pulse Resp BP Pulse Ox 02/12/18 04:51 97.6 F 89 18 131/70 96 - Laboratory Lab Statement: Any lab studies that have been ordered have been reviewed, and results considered in the medical decision making process. Course/Dx - Course Assessment/Plan: Pt is a 62 y/o female who presents to the ED for a red area over her left knee x2 days. Pt reports a couple of days ago she developed a red area over her left knee that is painful. Denies pruritus of this area. Pt additionally states she has had "bites" on her right upper chest for a couple of months now. On exam pt has a 1 inch in diameter tender, red, and warm area over the proximal part of the left leg. Painful but not pruritic. In the ED course the pt received ibuprofen and clindamycin. Pt will be discharged home with follow up from her PCP in 1-2 days. She was given prescriptions for Ibuprofen and Clindamycin. Pt was instructed to return to the ED for any worsening or new symptoms. - Diagnoses Provider Diagnoses: Cellulitis Discharge - Sign-Out/Discharge Documenting (check all that apply): Patient Departure - Discharge home - Discharge Plan Condition: Stable Disposition: HOME Prescriptions: Clindamycin Cap(NF) [Clindamycin Cap 300 mg Cap(NF)] 300 mg PO Q6H #30 cap Ibuprofen TAB* [Motrin TAB* 800 MG] 800 mg PO Q6H PRN #30 tab PRN Reason: Pain Patient Education Materials: Cellulitis (ED) Referrals: Elvin Kirby MD [Primary Care Provider] - Additional Instructions: Please follow up with your primary care provider in 1-2 days. RETURN TO EMERGENCY DEPARTMENT FOR ANY NEW OR WORSENING SYMPTOMS. - Attestation Statements Document Initiated by Scribe: Yes Documenting Scribe: Polina Hernández Provider For Whom Scribe is Documenting (Include Credential): Ceci Elam MD Scribe Attestation: I, Polina Hernández, scribed for Ceci Elam MD on 02/12/18 at 0509. Status of Scribe Document: Ready
== END 2018-02-12 05:20 | disposition home or self-care (01) ==
LOC: ED 04:49
DX: L03.116 Cellulitis of left lower limb (principal); Z88.1 Allergy status to other antibiotic agents; Z88.2 Allergy status to sulfonamides; F17.210 Nicotine dependence, cigarettes, uncomplicated
CPT/HCPCS: 99282; A9270-GY

== ENCOUNTER 2018-06-22 08:43 | Emergency (ER) | payer OTHER ==
[2018-06-22 09:00] VITALS: BP 95/59
== END 2018-06-22 09:53 | disposition left against medical advice (07) ==
LOC: UCEAST 08:43
DX: L98.9 Disorder of the skin and subcutaneous tissue, unspecified (principal); Z53.21 Procedure and treatment not carried out due to patient leaving prior to being seen by health care provider